=== PATIENT | female | born 1990 | race Caucasian/White ===

== ENCOUNTER 2024-02-04 09:28 | Emergency (ER) | payer OTHER ==
[~2024-02-04] VITALS: Ht 154.9 cm; Wt 77.1 kg
[2024-02-04 09:40] VITALS: BP 134/83; PULSE 82; RESP 18; TEMP 98.3; O2SAT 100
[2024-02-04] MEDS: KETOROLAC 30 MG/ML VIAL IM ONE (12:20)
[2024-02-04] MEDS ORDERED: NAPR-1704 PO (13:18)
[2024-02-04] MEDS ORDERED: CAPS1ADH5 TP (13:18)
== END 2024-02-04 13:24 | disposition home or self-care (01) ==
LOC: MED 09:28
DX: S46.911A Strain of unspecified muscle, fascia and tendon at shoulder and upper arm level, right arm, initial encounter (principal); Z79.1 Long term (current) use of non-steroidal anti-inflammatories (NSAID); Z79.899 Other long term (current) drug therapy; X50.0XXA Overexertion from strenuous movement or load, initial encounter; Y93.89 Activity, other specified; Y92.89 Other specified places as the place of occurrence of the external cause; Y99.0 Civilian activity done for income or pay
CPT/HCPCS: 73030; 81025; 96372; 99283; J1885